=== PATIENT | male | born 1995 | race Hispanic/Latino ===

== ENCOUNTER 2023-08-15 15:48 | Inpatient (IN) | payer MEDICAID, OTHER ==
[~2023-08-15] VITALS: Ht 175.3 cm; Wt 99.8 kg
[2023-08-15 16:39] LABS: BASOPHILS # (AUTO) 0.03 K/uL (0.00-0.20); BASOPHILS % (AUTO) 0.4 % (0.0-5.0); EOSINOPHILS # (AUTO) 0.09 K/uL (0.00-0.70); EOSINOPHILS % (AUTO) 1.3 % (0.0-8.0); HEMATOCRIT 44.8 % (42-54); IMMATURE GRANULOCYTE ABSOLUTE 0.02 K/uL (0-1); LYMPHOCYTES # (AUTO) 1.7 K/uL (1.0-4.8); LYMPHOCYTES % (AUTO) 23.9 % (21.0-51.0); MEAN CORPUSCULAR HEMOGLOBIN 30.2 pg (27.0-33.0); MEAN CORPUSCULAR HGB CONC 33.5 g/dL (32.0-36.0); MEAN CORPUSCULAR VOLUME 90.3 fL (79-99); MONOCYTES # (AUTO) 0.6 K/uL (0.1-1.0); MONOCYTES % (AUTO) 7.8 % (3.0-13.0); NEUTROPHILS # (AUTO) 4.7 K/uL (1.8-7.7); NEUTROPHILS % (AUTO) 66.3 % (40.0-77.0); PLATELET COUNT (AUTO) 223 K/uL (130-400); RED BLOOD CELL COUNT(AUTO) 4.96 MIL/uL (4.50-6.20)
[2023-08-15 16:56] LABS: ALBUMIN 4.2 g/dL (3.5-5.0); BILIRUBIN,TOTAL 0.9 mg/dL (0.2-1.0); CREATININE 1.1 mg/dL (0.5-1.5); POTASSIUM 3.7 mmol/L (3.5-5.1); TOTAL PROTEIN, SERUM 7.7 g/dL (6.0-8.3)
[2023-08-15 17:33] LABS: APPEARANCE,URINE CLOUDY (CLEAR); BILIRUBIN,URINE NEGATIVE (NEGATIVE); COLOR,URINE YELLOW (YELLOW); GLUCOSE, URINE (UA) NEGATIVE (NEGATIVE); KETONES,URINE NEGATIVE (NEGATIVE); LEUKOCYTE ESTERASE ,URINE NEGATIVE Leu/uL (NEGATIVE); NITRATE,URINE NEGATIVE (NEGATIVE); OCCULT BLOOD,URINE NEGATIVE (NEGATIVE); PROTEIN,URINE NEGATIVE (NEGATIVE)
[2023-08-15 17:34] LABS: ADD UA MICROSCOPIC YES
[2023-08-15 17:39] LABS: BACTERIA,URINE RARE /HPF (None Seen); SQUAMOUS EPITHELIAL CELL,UR RARE /HPF (0-2); UNCLASSIFIED CRYSTAL 12 /HPF (None Seen); WBC CLUMP FEW /HPF (0-1); YEAST,URINE BUDDING MOD /HPF (None Seen)
[2023-08-15] MEDS ORDERED: 0.9%NACL 1000ML 1,000 ML IV ONE (19:30)
[2023-08-15] MEDS ORDERED: KETOROLAC 30MG VIAL (30MG/ML) IM ONE (19:30)
[2023-08-15] MEDS ORDERED: KETOROLAC 15MG/ML VIAL (15MG/ML) IV ONE (19:30)
[2023-08-15] MEDS ORDERED: MORPHINE 2 MG SYG IV PRN (20:30)
[2023-08-15] MEDS ORDERED: LACTULOSE 20 GM/30 ML UDCUP PO PRN (20:30)
[2023-08-15] MEDS ORDERED: 0.9%NACL 1000ML 1,000 ML IV SCH (20:30)
[2023-08-15] MEDS ORDERED: ONDANSETRON 4MG INJ IV PRN (20:30)
[2023-08-15] MEDS ORDERED: FAMOTIDINE 20MG TAB PO SCH (21:00)
[2023-08-15 21:20] VITALS: BP 120/68; PULSE 78; RESP 18; O2SAT 97
== END 2023-08-15 21:17 | disposition left against medical advice (07) | DRG 446 ==
LOC: EDH 15:48 → EDHIP 15:49
PROVIDERS: ADMIT Hospitalist; ATTEND Hospitalist
DX: K80.70 Calculus of gallbladder and bile duct without cholecystitis without obstruction (principal); F17.210 Nicotine dependence, cigarettes, uncomplicated; R74.8 Abnormal levels of other serum enzymes; Z53.29 Procedure and treatment not carried out because of patient's decision for other reasons
CPT/HCPCS: 36415; 76705; 80053; 81001; 83690; 85025; 87088; G0378; J1885; J7030